=== PATIENT | male | born 1960 | race Caucasian/White ===

== ENCOUNTER 2024-06-05 13:33 | Emergency (ER) | payer BC, SELFPAY ==
[2024-06-05] VITALS (25 sets, daily range): BP systolic 110–153; BP diastolic 65–93; PULSE 46–90; RESP 24; TEMP 36.7; O2SAT 95–100; BMI 31.0
--- NOTE | 2024-06-05 | CRLHL7_ITS ---
For Patients: As a result of the Century Cures Act, medical imaging exams and procedure reports are released immediately into your electronic medical record. You may view this report before your referring provider. If you have questions, please contact your health care provider. INDICATION: Code blue. TECHNIQUE: Chest 1 views. COMPARISON: None. FINDINGS/impression: Cardiovascular and mediastinum: Cardiomediastinal silhouette is within normal limits. Lungs and pleural spaces: Slightly low lung volumes. Perihilar interstitial opacities may reflect minimal pulmonary edema. No sign of pleural effusion. No pneumothorax. Bones and soft tissues: No significant findings. Dictated by Shannan Rivas MD @ 06/05/2024 3:58:16 PM (Electronically Signed)
--- NOTE | 2024-06-05 13:49 | ED_ITS ---
HPI - General Adult General Chief complaint: Abdominal Pain Stated complaint: Sent by for fluids Time Seen by Provider: 06/05/24 13:35 History of Present Illness HPI narrative: Was at today , they recommended pt be seen in ER due to suspected food poisoning. Pt has abd pain, nausea. 64-year-old man presenting to the emergency department after initially being evaluated in urgent care. Concern was that he needed some fluid resuscitation with suspicion of food poisoning. No concerning ingestions. Early this morning started to vomit. Not been able to keep anything down. Pain in the abdomen started later. Did have a bowel movement earlier today. Does have diarrhea but this is not a new thing; chronic. Thought may be med related. History of renal cell carcinoma and I believe about a year and a half ago had nephrectomy. He has not had any fever. Abdominal pain is generalized. Most recently though he is just use to the middle of the abdomen. He notes he has had a really dry mouth. Related Data Home Medications ?Medication ?Instructions ?Recorded ?Confirmed amoxicillin 875 mg tablet mg PO 06/05/24 06/05/24 apremilast 30 mg tablet (Otezla) 30 mg PO BID 06/05/24 06/05/24 atorvastatin 40 mg tablet 40 mg PO DAILY 06/05/24 06/05/24 betamethasone dipropionate 0.05 % applic topical BID 06/05/24 06/05/24 topical cream blood-glucose meter,continuous #1 ea 06/05/24 06/05/24 (Dexcom G7 Livestock [employer] Supervisor) blood-glucose sensor (Dexcom G7 #1 ea 06/05/24 06/05/24 Sensor device) cetirizine 10 mg tablet 10 mg PO DAILY 06/05/24 06/05/24 cholestyramine-aspartame 4 gram ea PO 06/05/24 06/05/24 oral powder (Prevalite) dapagliflozin propanediol 10 mg 10 mg PO DAILY 06/05/24 06/05/24 tablet (Farxiga) dapagliflozin propanediol 5 mg 5 mg PO DAILY 06/05/24 06/05/24 tablet (Farxiga) diphenoxylate-atropine 2.5 1 tab PO QID PRN diarrhea 06/05/24 06/05/24 mg-0.025 mg tablet doxepin 25 mg capsule 25 mg PO QPM 06/05/24 06/05/24 fluoxetine 40 mg capsule 40 mg PO QAM 06/05/24 06/05/24 gabapentin 300 mg capsule 300 mg PO BID 06/05/24 06/05/24 glipizide 5 mg tablet, extended 5 mg PO DAILY 06/05/24 06/05/24 release 24 hr insulin aspart U-100 100 unit/mL subcut 06/05/24 06/05/24 (3 mL) subcutaneous pen (Novolog FlexPen U-100 Insulin aspart) insulin glargine-yfgn 100 unit/mL 30 unit subcut QAM 06/05/24 06/05/24 (3 mL) subcutaneous pen (Semglee (insulin glargine-yfgn) Pen) pantoprazole 40 mg tablet,delayed 40 mg PO DAILY 06/05/24 06/05/24 release pen needle, diabetic 32 gauge x #100 ea 06/05/24 06/05/24 1/ (BD Ultra-Fine Micro Pen Needle) prednisone 20 mg tablet mg PO DAILY 06/05/24 06/05/24 terazosin 2 mg capsule 2 mg PO QPM 06/05/24 06/05/24 terazosin 5 mg capsule 5 mg PO QAM 06/05/24 06/05/24 trazodone 100 mg tablet 100 mg PO QPM 06/05/24 06/05/24 triamcinolone acetonide 0.1 % topical BID PRN 06/05/24 06/05/24 topical ointment Allergies Allergy/AdvReac Type Severity Reaction Status Date / Time No Known Drug Allergies Allergy Verified 06/05/24 12:41 Review of Systems Status of ROS: Reports: 6 or more systems reviewed and unremarkable except as noted in History and below [facility] Social History Smoking Status: Never smoker Do you use any of these nicotine containing products: None How often do you have a drink containing alcohol: never How often do you have six or more drinks on one occasion: Never AUDIT-C Alcohol total score: 0 Non-prescribed substance use: denies use service: No Exam Narrative: Exam Narrative: Pleasant. In mild discomfort and is mildly labored and mildly tachypneic breathing. Lungs appear to be clear. Heart is slower rate and regular rhythm. Distant. Abdomen with faint but present bowel sounds. There is a small supraumbilical well-healed surgical incision. Abdomen is diffusely mildly tender. He has trace pretibial edema. Appears well-perfused peripherally. Mouth is sticky Const: Vital Signs, click to edit/add: Vital Signs - 24 hr 06/05/24 13:44 06/05/24 14:55 06/05/24 15:04 Temperature 98.0 F Pulse Rate 50 L Pulse Rate [Pulse Oximeter] 55 L Respiratory Rate 24 Blood Pressure 110/90 H Blood Pressure [Ri ght Upper Arm] 117/66 Pulse Oximetry 100 99 96 Oxygen Delivery Me thod Room Air Oxygen Flow Rate 06/05/24 15:05 06/05/24 15:07 06/05/24 15:08 Temperature Pulse Rate 80 78 76 Pulse Rate [Pulse Oximeter] Respiratory Rate Blood Pressure 153/65 H 112/67 Blood Pressure [Ri ght Upper Arm] Pulse Oximetry 95 96 96 Oxygen Delivery Me thod Oxygen Flow Rate 06/05/24 15:11 06/05/24 15:12 06/05/24 15:15 Temperature Pulse Rate 68 79 65 Pulse Rate [Pulse Oximeter] Respiratory Rate Blood Pressure 126/77 119/71 Blood Pressure [Ri ght Upper Arm] Pulse Oximetry 95 95 95 Oxygen Delivery Me thod Oxygen Flow Rate 06/05/24 15:17 06/05/24 15:18 06/05/24 15:22 Temperature Pulse Rate 74 52 L 46 L Pulse Rate [Pulse Oximeter] Respiratory Rate Blood Pressure 126/78 144/82 H Blood Pressure [Ri ght Upper Arm] Pulse Oximetry 96 95 98 Oxygen Delivery Me thod OxyMask OxyMask Oxygen Flow Rate 8 8 06/05/24 15:27 06/05/24 15:30 06/05/24 15:32 Temperature Pulse Rate 50 L 72 66 Pulse Rate [Pulse Oximeter] Respiratory Rate Blood Pressure 129/66 135/77 Blood Pressure [Ri ght Upper Arm] Pulse Oximetry 98 98 97 Oxygen Delivery Me thod OxyMask OxyMask OxyMask Oxygen Flow Rate 8 8 8 06/05/24 15:37 Temperature Pulse Rate 76 Pulse Rate [Pulse Oximeter] Respiratory Rate Blood Pressure 131/84 Blood Pressure [Ri ght Upper Arm] Pulse Oximetry 98 Oxygen Delivery Me thod OxyMask Oxygen Flow Rate 8 Documenting provider has reviewed patient's vital signs: yes Course Vital Signs Vital signs: Initial Vital Signs Temperature 98.0 F 06/05/24 13:44 Temperature Source Temporal Artery Scan 06/05/24 13:44 Pulse Rate 55 L 06/05/24 13:44 Respiratory Rate 24 06/05/24 13:44 Blood Pressure 117/66 06/05/24 13:44 Blood Pressure Mean 83 06/05/24 13:44 Blood Pressure Position Sitting 06/05/24 13:44 Pulse Oximetry 100 06/05/24 13:44 Oxygen Delivery Method Room Air 06/05/24 13:44 Vital Signs Temperature 98.0 F 06/05/24 13:44 Pulse Rate 55 L 06/05/24 13:44 Respiratory Rate 24 06/05/24 13:44 Blood Pressure 117/66 06/05/24 13:44 Pulse Oximetry 100 06/05/24 13:44 Oxygen Delivery Method Room Air 06/05/24 13:44 Temperature 98.0 F 06/05/24 13:44 Pulse Rate 76 06/05/24 15:37 Respiratory Rate 24 06/05/24 13:44 Blood Pressure 131/84 06/05/24 15:37 Pulse Oximetry 98 06/05/24 15:37 Oxygen Delivery Method OxyMask 06/05/24 15:37 Oxygen Flow Rate 8 06/05/24 15:37 Medications Administered Medications: Generic Name Dose Route Start Last Admin Trade Name David PRN Reason Stop Dose Admin Potassium Chloride 10 meq in 100 mls @ 100 mls/hr 06/05/24 15:15 06/05/24 15:20 Potassium Chloride IVPB 06/05/24 16:14 100 mls/hr ONCE ONE Administration Discontinued Medications Generic Name Dose Route Start Last Admin Trade Name Freq PRN Reason Stop Dose Admin Aspirin 324 mg 06/05/24 15:15 06/05/24 15:25 Aspirin 81 Mg Tab.Chew PO 06/05/24 15:16 324 mg ONCE ONE Administration Hyoscyamine 0.25 mg 06/05/24 14:23 06/05/24 14:38 Hyoscyamine Sulfate 0.125 Mg Tab SUBLINGUAL 06/05/24 14:24 0.25 mg ONCE ONE Administration Sodium Chloride 500 mls @ 1,000 mls/hr 06/05/24 13:57 06/05/24 14:30 0.9 % Sodium Chloride 500 Ml IV 06/05/24 14:26 1,000 mls/hr .Q30M ONE Administration Ketorolac Tromethamine 15 mg 06/05/24 14:21 06/05/24 14:31 Ketorolac 15 Mg/Ml Inj IVP 06/05/24 14:22 15 mg ONCE ONE Administration Lidocaine HCl 100 mg 06/05/24 15:24 06/05/24 15:26 Lidocaine 100 Mg/5 Ml Pre-Fill Syringe IV 06/05/24 15:25 100 mg ONCE ONE Administration Ondansetron HCl 4 mg 06/05/24 14:05 06/05/24 14:31 Ondansetron 2 Mg/Ml Inj IVP 06/05/24 14:06 4 mg ONCE ONE Administration Medical Decision Making MDM Narrative Medical decision making narrative: This would seem to be an infectious gastritis. Uncertain whether not this is ?food poisoning?. Regardless would seem to benefit from IV fluid resuscitation. Antiemetic. There was concern of expressed of a small-bowel obstruction. Suppose this is possible. Sounds like has had bowel movement today though and passing flatus. Course of events with onset initially a vomiting and pain later I think is less likely. During monitoring in the emergency department nursing noted some irregular heartbeats. Going in out of uncertain rhythm. EKG reviewed by me at that time showing PVCs and maybe some bigeminy. Some irregularity at the onset that looks like tail end of V-tach. Was reported at that time then to have had brief run of V-tach. Became less responsive transferring to cardiac room did not have a palpable pulse. Given a few compressions, he alerted and monitor showed a sinus bradycardia. Pacer pads were placed. Rhythm alternated between this and a a V-tach where he became less responsive and then back to bradycardia in the 50s and 60s. In and out of V-tach was clearly developing a torsades. Perhaps 5 of these episodes overall. Was dosed with 300 mg of amiodarone but given length of QTC on EKG was discontinued on amiodarone drip. During conversation with Cardiology at [place], chemistries returned a noting low normal potassium. Was bolused with potassium and ordered for magnesium, calcium gluconate and lidocaine. Further discussed with Cardiology. Continue to monitor on pvc monitor. Is alert responding appropriately mentating normally. Had vomited somewhere in this episode and unfortunately had been given another 4 mg of Zofran. Recommended for transport to [place] cardiac ICU as soon as possible, air care if necessary. Medical Records Medical records reviewed: Yes I reviewed the patient's medical records Lab Data Lab results reviewed: Yes I reviewed the patient's lab results Labs: Lab Results 06/05/24 06/05/24 Range/Units 14:20 15:12 WBC 11.20 H (4.50-11.00) K/uL RBC 4.90 (4.30-5.90) m/uL Hgb 13.9 (13.5-17.5) gm/dL Hct 42.2 (37.0-53.0) % MCV 86 (80-100) fL MCH 28 (26-34) pg MCHC 33 (32-36) gm/dL RDW Coeff of Aubrey 12.6 (11.5-15.5) % Plt Count 149 (140-440) K/uL Neut % (Auto) 87.6 H (42.0-72.0) % Lymph % (Auto) 5.2 L (20-44) % Tucker % (Auto) 5.9 (0.0-11.0) % Eos % (Auto) 1.0 (0.0-7.0) % Baso % (Auto) 0.1 (0.0-3.0) % Neut # (Auto) 9.80 H (1.7-7.0) K/uL Lymph # (Auto) 0.60 L (0.90-2.90) K/uL Tucker # (Auto) 0.70 (0.00-0.90) K/UL Eos # (Auto) 0.10 (0.00-0.50) K/uL Baso # (Auto) 0.00 (0.00-0.30) K/uL Abs Immat Gran (auto) 0.00 (0.00-0.30) K/uL Imm/Tot Granulo (auto) 0.2 % Sodium 137 (135-149) mmol/L Potassium 3.7 (3.6-5.1) mmol/L Chloride 106 (96-114) mmol/L Carbon Dioxide 17 L (20-32) mmol/L Anion Gap 14 (7-15) mEq/L BUN 18 (7-30) mg/dL Creatinine 1.8 H (0.5-1.5) mg/dL Estimated Creat Clear 39.06 Estimated GFR 41 ml/min Glucose 176 H (60-115) mg/dL Lactate 3.5 H (0.5-1.9) mmol/L Calcium 10.5 (8.4-10.6) mg/dL Magnesium 2.1 (1.5-2.6) mg/dL Total Bilirubin 1.5 (0.1-1.5) mg/dL Direct Bilirubin 0.1 (0.0-0.5) mg/dL AST 21 (12-35) U/L ALT 17 (4-50) U/L Alkaline Phosphatase 92 (40-150) U/L Troponin I < 0.01 L (0.01-0.04) ng/mL C-Reactive Protein 0.9 (0.5-1.0) mg/dL NT-Pro-B Natriuret Pep 893 pg/mL Total Protein 8.1 (6.0-8.3) g/dL Albumin 4.6 (3.3-5.0) g/dL POC Troponin I 0.01 (0.01-0.04) ng/ml Critical Care Time Critical Care Time Critical Care Time: Yes Attestation: The patient required my highest level preparedness to intervene emergently and I personally spent this critical care time directly and personally managing the patient. This critical care time included: Obtaining a history; Examining the patient; Pulse oximetry; Ordering and reviewing of studies; Arranging urgent treatment with development of a management plan; Evaluation of patients response to treatment; Frequent reassessment discussions with other providers. This critical care time was performed to assess and manage the high probability of imminent life-threatening deterioration that could result in multiorgan failure. It was exclusive of separate billable procedures and treating other patients and teaching time. Total Critical Care Time in Minutes: 70 Discharge Plan Discharge Clinical Impression: V tach, Torsades de pointes, Gastritis, Acidosis, lactic Patient Disposition: Xfer [facility] Discharge Location: [facility] Condition: Guarded Prescriptions: No Action prednisone 20 mg tablet PO DAILY diphenoxylate-atropine 2.5-0.025 mg tablet 1 tab PO QID PRN (Reason: diarrhea) (DME) pen needle, diabetic [BD Ultra-Fine Micro Pen Needle] 32 gauge x 1/4 needle See Rx Instructions .ROUTE .MEDSUPPLY Qty: 100 Patient Comments: USE FOR ADMINISTERING INSULIN AT HOME Rx Instructions: As directed amoxicillin 875 mg tablet PO Prevalite 4 gram powder PO doxepin 25 mg capsule 25 mg PO QPM dapagliflozin propanediol [Farxiga] 5 mg tablet 5 mg PO DAILY pantoprazole 40 mg tablet,delayed release (DR/EC) 40 mg PO DAILY betamethasone dipropionate 0.05 % cream topical BID dapagliflozin propanediol [Farxiga] 10 mg tablet 10 mg PO DAILY insulin aspart U-100 [Novolog FlexPen U-100 Insulin] 100 unit/mL (3 mL) insulin pen subcut fluoxetine 40 mg capsule 40 mg PO QAM gabapentin 300 mg capsule 300 mg PO BID atorvastatin 40 mg tablet 40 mg PO DAILY glipizide 5 mg tablet extended release 24hr 5 mg PO DAILY (DME) Dexcom G7 Livestock Yard Supervisor Misc See Rx Instructions .ROUTE 2XW Qty: 1 Rx Instructions: As directed triamcinolone acetonide 0.1 % ointment topical BID PRN (DME) Dexcom G7 Sensor Device See Rx Instructions .ROUTE 2XW Qty: 1 Rx Instructions: As directed terazosin 2 mg capsule 2 mg PO QPM insulin glargine-yfgn [Semglee(insulin glarg-yfgn)Pen] 100 unit/mL (3 mL) insulin pen 30 unit subcut QAM trazodone 100 mg tablet 100 mg PO QPM terazosin 5 mg capsule 5 mg PO QAM cetirizine 10 mg tablet 10 mg PO DAILY Otezla 30 mg tablet 30 mg PO BID Follow Up/Referrals: Provider,Not a Local [Non-Staff] - Stand Alone Forms: [facility] Info Instructions
[2024-06-05 14:26] LABS: Basophils Percent Auto 0.1 % (0.0-3.0); Hematocrit 42.2 % (37.0-53.0); Hemoglobin* 13.9 gm/dL (13.5-17.5); Immature Granulocytes Pct Auto 0.2 %; Lactate* 3.5 mmol/L (0.5-1.9); Lymphocytes Percent Auto 5.2 % (20-44); Mean Corpuscular HGB Conc 33 gm/dL (32-36); Mean Corpuscular Hemoglobin 28 pg (26-34); Mean Corpuscular Volume 86 fL (80-100); Monocytes Percent Auto 5.9 % (0.0-11.0); Neutrophils Percent Auto 87.6 % (42.0-72.0); Platelet Count* 149 K/uL (140-440); RDW Coefficient of Variation % 12.6 % (11.5-15.5)
[2024-06-05] MEDS: 0.9 % SODIUM CHLORIDE 500 ML 500 ML 1000 ML IV (14:30)
[2024-06-05] MEDS: KETOROLAC 15 MG/ML inj IVP (14:31)
[2024-06-05] MEDS: ONDANSETRON 2 MG/ML inj 4 MG IVP (14:31)
[2024-06-05 14:33] LABS: Slide Review Reflex No
[2024-06-05] MEDS: HYOSCYAMINE SULFATE 0.125 MG TAB 0.25 MG SUBLINGUAL (14:38)
[2024-06-05 14:42] LABS: Albumin* 4.6 g/dL (3.3-5.0); Chloride* 106 mmol/L (96-114); Sodium* 137 mmol/L (135-149)
[2024-06-05 14:43] LABS: Potassium* 3.7 mmol/L (3.6-5.1)
[2024-06-05 14:46] LABS: Alanine Aminotransferase* 17 U/L (4-50); Alkaline Phosphatase* 92 U/L (40-150); Anion Gap 14 mEq/L (7-15); Aspartate Amino Transferase* 21 U/L (12-35); Bilirubin Direct* 0.1 mg/dL (0.0-0.5); Bilirubin Total* 1.5 mg/dL (0.1-1.5); Blood Urea Nitrogen* 18 mg/dL (7-30); Calcium* 10.5 mg/dL (8.4-10.6); Carbon Dioxide* 17 mmol/L (20-32); Creatinine* 1.8 mg/dL (0.5-1.5); Est. Creatinine Clearance* 39.06; Estimated Glomerular Filt Rate 41 ml/min; Glucose* 176 mg/dL (60-115); Total Protein* 8.1 g/dL (6.0-8.3)
[2024-06-05 14:48] LABS: C Reactive Protein* 0.9 mg/dL (0.5-1.0)
[2024-06-05 15:13] LABS: Troponin, Point-of-Care* 0.01 ng/ml (0.01-0.04)
[2024-06-05] MEDS: POTASSIUM CHLORIDE 10 MEQ/100 ML PIGGYBACK 100 MEQ IVPB (15:20)
[2024-06-05] MEDS: ASPIRIN 81 MG TAB.CHEW 324 MG PO (15:25)
[2024-06-05] MEDS: [UNRECOGNIZED DRUG - OTHER] IV (15:26)
[2024-06-05] MEDS: LIDOCAINE IV (15:26)
--- NOTE | 2024-06-05 15:37 | ED.NURSE ---
Air care contacted for fly time.
[2024-06-05 15:46] LABS: Magnesium* 2.1 mg/dL (1.5-2.6); NT Pro B Type NatriureticPept* 893 pg/mL; Troponin I* < 0.01 ng/mL (0.01-0.04)
--- NOTE | 2024-06-05 16:52 | ED.NURSE ---
Report given to yvon Alcantara RN at [facility] ICU.
== END 2024-06-05 16:20 | disposition short-term general hospital (02) ==
PROVIDERS: Emergency Provider Family Medicine; PCP Student in an Organized Health Care Education/Training Program
DX: I47.21 Torsades de pointes (principal); E87.20 Acidosis, unspecified; I47.20 Ventricular tachycardia, unspecified
CPT/HCPCS: 36415; 71045; 80048; 80076; 81001; 83605; 83735; 83880; 84484; 85025; 86140; 93005; 96365; 96366; 96375; 99284; 99291; A9270; J1885; J2405; J3475; J3480; J7030